=== PATIENT | female | born 1985 | race Two or more races ===

== ENCOUNTER 2016-04-14 22:43 | Inpatient (IN) | payer OTHER ==
[~2016-04-14] VITALS: Ht 142.2 cm; Wt 64.5 kg
[2016-04-14 23:16] VITALS: Ht 142.2 cm; Wt 64.5 kg
[2016-04-14 23:17] VITALS: BP 136/73; PULSE 101; RESP 18
[2016-04-14] MEDS ORDERED: PREN1TAB62 PO (23:20)
[2016-04-14] MEDS ORDERED: FERR325C PO (23:20)
[2016-04-14] MEDS ORDERED: GLYB2.5T2 PO (23:20)
--- NOTE | 2016-04-15 00:22 | HP ---
Date/Time of Note Date/Time of Note DATE: 04/15/16 TIME: 00:15 OB - History Hx of Present Free Text/Dictation 30 yo P1001 @ 32 wks, presents w PPROM good FM, no VB, irreg ctx Chief Complaint: PPROM : 2 Para: 1 Care: Good Care Other Concerns: GDMA2, 2.5mg glyburide po BID prior c/d in [place] Past Family/Social History * Past Medical, Surgical, Family and Obstetric Histories reviewed from chart. Blood Type: A+ Rubella: immune RPR/VDRL: Negative GBS Status: Unknown HBsAG: Negative OB Admission Exam Vital Signs Vital Signs Vital Signs Date Time Temp Pulse Resp B/P Pulse Ox O2 Delivery O2 Flow Rate FiO2 04/14/16 23:17 98.2 101 18 136/73 Room Air Physical Exam Abdomen: WNL Extremities: Normal Cervical Dilatation: None Effacement: 0% Station: Ballotable Membranes: Ruptured Amniotic Fluid: Clear Accelerations: Accelerations Present Decelerations: No Decelerations Varibility: Moderate Intensity: Mild OB Assessment/Plan Reason for admission: labor, rupture of membranes Other Assessment: 30 yo P1, w PPROM - previous elective c/d in [place] - GBS uknown - GDMA2, on glyburide Other plan: Admit to L&D Start magnesium sulfate and betamethasone to promote neuroprotection and FLM ampicillin for GBS prophylaxis sono to confirm presentation If patient starts to dilate and is not vertex, will proceed to repeat c/d. NPO until ultrasound RENETTA OVERTON MD Apr 15, 2016 00:22
[2016-04-15] MEDS ORDERED: DEXTROSE 5%-LR 1,000 ML IV PRN (00:30)
[2016-04-15] MEDS ORDERED: MAGNESIUM SULFATE 4 GM/100 ML 100 ML IV ONE (00:30)
[2016-04-15] MEDS ORDERED: AMPICILLIN 2 GM/NS (PMX) 100 ML IV ONE (00:30)
[2016-04-15] MEDS: LACTATED RINGER'S 1,000 ML IV SCH ×4 (01:24→19:52)
[2016-04-15 01:29] LABS: ADD SCAN DIFF NO
--- NOTE | 2016-04-15 01:30 | TRIAGE ---
OB Triage Datetime Report Generated by CPN: 04/15/2016 01:29 Datetime: 04/15/2016 00:30 Stage of : Antepartum Labor Evaluation Frequency: 4-7 Monitor Mode: External Duration (sec)2399: 70-90 Pattern: Normal: <= 5 Contractions in 10 Minutes Heart Rate FHR Baseline Rate: 150 Monitor Mode: External US FHR Baseline Changes: No Baseline Change Variability: Moderate 6-25 bpm Accelerations: 15X15 Decelerations: None Category: Category I Datetime: 04/15/2016 00:08 Membrane Status: Ruptured Datetime: 04/14/2016 23:39 Vaginal Exam Dilatation (cms): 0.0 Effacement (%): 0 Station: -4 Exam By: NITA Vaginal Bleeding: None Cervix, Consistency: Firm Cervix, Position: Posterior Presentation 'A': Unable to Assess Datetime: 04/14/2016 23:30 Labor Evaluation Frequency: 4-5 Duration (sec)2399: 60-80 Heart Rate FHR Baseline Rate: 150 Monitor Mode: External US FHR Baseline Changes: No Baseline Change Variability: Moderate 6-25 bpm Accelerations: 15X15 Decelerations: None Category: Category I Datetime: 04/14/2016 23:10 Comments: POSITION APPEARS TO BE BREECH WITH LEOPOLDS MANEUVER AND EXTERNAL U/S PLACEMENT Datetime: 04/14/2016 23:02 Nitrazine: Positive Datetime: 04/14/2016 22:57 Assessment Type: Triage Maternal Assessment Level of Consciousness: Fully Conscious Headache: Denies Blurred Vision: No Respiratory Effort: Unlabored; Regular Rhythm; Equal Expansion Nausea/Vomiting: Denies RUQ Epigastric Pain: Denies Lower Extremities Edema: Bilateral Lower Extremities Degree: 1+ Facial Edema: None Fall Risk Assessment History of Falling: (0) No Secondary Diagnosis: (0) No Ambulatory Aid: (0) Bedrest/Nurse Assist IV Therapy: (0) No Gait: (0) Normal/Bedrest/Immobile Mental Status: (0) Oriented to Own Ability Fall Score: 0 Fall Risk Score Definition: No Risk: No action required Datetime: 04/14/2016 22:53 Stage of : OB Triage Contraction Comments: EXTERNAL MONITORS Comments: EXTERNAL MONITORS APPLIED Datetime: 04/14/2016 22:51 Time of Arrival: 04/14/2016 22:38 EGA: 31.6 Arrived By: Wheelchair Arrived From: Home Chief Complaint: SROM SINCE 21:00 Movement: Present Contractions: Denies/Absent Rupture of Membranes: Unsure Vaginal Bleeding: None Vaginal Discharge: Denies Recent Sexual Intercouse: Denies Abdominal Trauma: Not Applicable Patient Complaints: Other Time Provider Notified: 04/15/2016 00:08 Provider Notified: TIAN Initial Plan: EFM, STERILE SPEC, ROM+/NITRAZINE
[2016-04-15 01:37] LABS: ABNORMAL IP MESSAGE 1; BASOPHILS % 0.1 % (0.0-2.0); EOSINOPHILS # 0.2 10^3/ul (0.0-0.5); EOSINOPHILS % 1.7 % (0.0-7.0); HEMATOCRIT 38.3 % (37.0-47.0); HEMOGLOBIN 11.5 g/dl (12.0-16.0); LYMPHOCYTES # 2.7 10^3/ul (0.8-2.9); LYMPHOCYTES % 28.2 % (15.0-51.0); MEAN CORPUSCULAR HEMOGLOBIN 20.4 pg (29.0-33.0); MEAN CORPUSCULAR VOLUME 67.8 fl (82.0-101.0); MONOCYTE # 0.7 10^3/ul (0.3-0.9); MONOCYTES % 7.5 % (0.0-11.0); NEUTROPHIL # 5.9 10^3/ul (1.6-7.5); PLATELET COUNT 222 10^3/UL (140-415); RED BLOOD COUNT 5.65 10^6/ul (4.20-5.40); RED CELL DISTRIBUTION WIDTH 18.4 % (11.5-14.5); WHITE BLOOD COUNT 9.6 10^3/ul (4.8-10.8)
[2016-04-15 01:43] LABS: INR 0.91; PROTIME 12.2 Sec (12.2-14.2)
[2016-04-15 01:47] LABS: GLUCOSE 147 mg/dl (70-220)
[2016-04-15] MEDS: MAGNESIUM SULFATE 20 GM/500 ML 500 ML IV SCH ×3 (01:54→21:43)
[2016-04-15] MEDS: BETAMET NA PHOS/AC(6 MG/ML) 5ML INJ IM SCH (01:56)
--- NOTE | 2016-04-15 02:01 | RADRPT ---
PROCEDURE: US OB. CLINICAL INDICATION: labor, ultrasound OB estimated weight. Clinical estimate gesta tional age is 33 weeks 1 day with estimated date of delivery 06/02/2016 TECHNIQUE: Multiple sonographic images of the pelvis were obtained. Transabdominal imaging only w as performed. The images were reviewed on a PACS workstation. COMPARISON: 03/08/2016 FINDINGS: There is a single live intrauterine gestation. Cardiac activity is present with 161 beats per minut e. There is a breech presentation. Measurements were made in order to determine age. The results are as follows: BPD = 8.23 cm, 33 weeks 1 day HC = 29.23 cm, 32 weeks 2 days AC = 30.68 cm, 34 weeks 4 days FL = 6.43 cm, 33 weeks 1 day. Estimated gestational age of approximately 33 weeks 2 days. The estimated date of delivery is 06/01/2016. The EFW = 2285 g, 5 pounds 1 ounce, 63%. The placenta is anterior and grade 1. There is no evidence for an abruption. IMPRESSION: 1. Single live intrauterine gestation of approximately 33 weeks 2 days based on current ultrasound measurements. 2. The estimated date of delivery is 06/01/2016. RPTAT: HJES .Heri Ernst MD, Date Time Electronically viewed and signed by .Heri Ernst MD, MD on 04/15/2016 02:00 .S/
[2016-04-15] MEDS: ACCU-CHEK XX SCH ×5 (05:30→21:00)
[2016-04-15] MEDS: AMPICILLIN 1 GM/NS (PMX) 50 ML IV SCH ×5 (06:58→20:33)
[2016-04-15] MEDS ORDERED: INSULIN REGULAR, HUMAN 100 UNIT/1 ML 3ML VIAL SC ONE (07:00)
[2016-04-15] MEDS ORDERED: OXYTOCIN 30 UNITS/LR 500 ML IV PRN (10:30)
[2016-04-15] MEDS ORDERED: MISOPROSTOL 200 MCG TAB PR PRN (10:30)
[2016-04-15] MEDS ORDERED: METHYLERGONOVINE 0.2 MG INJ IM PRN (10:30)
[2016-04-15] MEDS ORDERED: OXYTOCIN 30 UNITS/LR 500 ML IV SCH (10:30)
[2016-04-15] MEDS ORDERED: CEFAZOLIN 2 GM/50 ML (PMX) 50 ML IV ONE (10:30)
[2016-04-15] MEDS ORDERED: CARBOPROST 250 MCG INJ IM PRN (10:30)
--- NOTE | 2016-04-15 10:43 | CONS ---
DATE OF ADMISSION: 04/15/2016 DATE OF CONSULTATION: 04/15/2016 HISTORY OF PRESENT ILLNESS: consult requested by Dr. Marcial for prematurity at 32 and 1/7 weeks and history of gestational diabetes requiring Glyburide and history of premature rupture of membranes. Mom is 30-year-old [place] woman, 2, para 1, admitted early this morning with history of spontaneous rupture of membranes. EDC is 06/10/2016, estimated weight is 2285 grams. EDC On ultrasound it is 06/01/2016. Mom has history of section and presentation is breech now. she is afebrile and on antibiotics, on glyburide for gestational diabetes and given 1 dose of betamethasone and on magnesium sulfate. I have spoken to both parents and explained them about prematurity at 32 and 1/ 7 weeks, low weight, physiologic immaturity with gestational diabetes, risk of hypoglycemia, risk of respiratory distress syndrome, ventilatory assistance, bubble CPAP support and oxygen dependency, risk of sepsis, antibiotic therapy, need for spinal tap as clinically indicated, survival greater than 99%, jaundice, phototherapy, feeding problems with intolerance, necrotizing enterocolitis and gastroesophageal reflux, apnea of prematurity, and general treatment plan and general procedures done in NICU. I explained to the parents baby has significant risk for long-term hearing and neurodevelopmental problems including but not limited to delayed milestones, low intelligence, school problems, cerebral palsy, and answered the parents' questions and addressed the concerns. Parents seemed to understand the risks with prematurity and had appropriate questions. I thank you very much for allowing me to take part in the care of this patient. We will follow the mother and attend the delivery and follow the baby as needed. Dictated By: CLOVER JARQUIN/QUYEN Conf#: [id number] DID#: [id number] GEORGE
[2016-04-15] MEDS ORDERED: GLUCOSE GEL 15 GRAM TUBE PO PRN ×2 (12:00)
[2016-04-15] MEDS ORDERED: AZITHROMYCIN 500MG/NS (PMX) 250 ML IVPB ONE (12:00)
[2016-04-15] MEDS ORDERED: GLUCAGON 1 MG INJ IM PRN (12:00)
[2016-04-15] MEDS ORDERED: GLUCOSE GEL 15 GRAM TUBE BUCCAL PRN (12:00)
[2016-04-15] MEDS ORDERED: DEXTROSE 50% 50 ML SYRINGE IV PRN ×2 (12:00)
[2016-04-15] MEDS: INSULIN ASPART [NOVOLOG] 3 ML PEN SC SCH ×5 (13:00→21:36)
--- NOTE | 2016-04-15 13:08 | QN ---
Documentation Comment Laborist (Rounding for Dr. Marcial) HD#1 Doing well. Denies c/o. Reports normal FM. Not feeling UCs. Denies LOF or VB. VS 98.2 111/55 103 FHT: baseline 130s, mod marcia, +accels, no decels [place]: q9 min UCs Gen: well appearing, NAD CV: RRR, nl s1s2 Resp: CTAB Abd: soft, gravid, nontender, NABS Ext: SCDs in place, nontender, trace edema Neuro: 2+ patellar reflexes FSBG (0900) 187 A/P: 30yo w/hx of C/S x1 and GDMA2 now at 32+1 admitted for PPROM ->PPROM Day #2 w/o evidence of chorioamnionitis, abruption or PTL ->Cont Abx, Amp and Azithromycin ->FWB reassuring, CEFM ->Cont BMZ, s/p first dose at 0154, 2nd in 24hrs ->Magnesium Sulfate through the BMZ window ->Diabetic diet ->Restart Glyburide 2.5mg BID and fasting, PP FSBG with sliding scale Appreciate Perinatology and NICU consults REAGAN DRUMMOND MD Apr 15, 2016 13:08
[2016-04-15 14:50] LABS: ADD SCAN DIFF NO
[2016-04-15 15:10] LABS: INR 0.99; PROTIME 13.1 Sec (12.2-14.2)
[2016-04-15 15:11] LABS: PARTIAL THROMBOPLASTIN TIME 26.3 Sec (25.0-35.0)
[2016-04-15 15:23] LABS: ABNORMAL IP MESSAGE 1; BASOPHILS % 0.1 % (0.0-2.0); HEMATOCRIT 35.1 % (37.0-47.0); HEMOGLOBIN 10.7 g/dl (12.0-16.0); LYMPHOCYTES # 1.3 10^3/ul (0.8-2.9); LYMPHOCYTES % 14.6 % (15.0-51.0); MEAN CORPUSCULAR HEMOGLOBIN 20.6 pg (29.0-33.0); MEAN CORPUSCULAR HGB CONC 30.5 g/dl (32.0-37.0); MEAN CORPUSCULAR VOLUME 67.5 fl (82.0-101.0); MONOCYTE # 0.4 10^3/ul (0.3-0.9); NEUTROPHIL # 7.4 10^3/ul (1.6-7.5); NEUTROPHILS % 80.6 % (39.0-77.0); PLATELET COUNT 197 10^3/UL (140-415); RED CELL DISTRIBUTION WIDTH 18.2 % (11.5-14.5); WHITE BLOOD COUNT 9.2 10^3/ul (4.8-10.8)
[2016-04-16] MEDS: AMPICILLIN 1 GM/NS (PMX) 50 ML IV SCH ×6 (00:44→20:08)
[2016-04-16] MEDS: ACCU-CHEK XX SCH ×7 (01:00→20:08)
[2016-04-16] MEDS: BETAMET NA PHOS/AC(6 MG/ML) 5ML INJ IM SCH (02:01)
[2016-04-16] MEDS: MAGNESIUM SULFATE 20 GM/500 ML 500 ML IV SCH ×2 (07:34→17:22)
--- NOTE | 2016-04-16 08:23 | CONS ---
DATE OF ADMISSION: 04/15/2016 DATE OF CONSULTATION: 04/15/2016 HISTORY OF PRESENT ILLNESS: I spoke to the patient at about 10:30 in the morning on 04/15/2016. Th e patient is with intrauterine at 32 weeks and 1 day who presented to the hospital after s he recognized rupture of the membrane on 04/14/2016. Upon arrival to the hospital, rupture of the m embrane was confirmed. She was placed on magnesium sulfate and was given the betamethasone. She de nies any fever, chills, nausea, vomiting. OBSTETRIC HISTORY: Significant for gestational diabetes for which she takes Glyburide. No surgeries. Previous has been a normal vaginal delivery, full term. REVIEW OF SYSTEMS: All negative except for what is mentioned above. PHYSICAL EXAMINATION: VITAL SIGNS: Temperature is 98.2. Heart rate is slightly tachycardic at 110. Physical examination deferred. heart tone is reassuring for the gestational age and the patient has very occasional contracti ons. IMPRESSION: Intrauterine at 32 weeks and 1 day with premature rupture of membrane , day 1, on magnesium sulfate, status post betamethasone x1. She is currently on ampicillin and the re is no evidence of chorioamnionitis at this point. It is important to note that the fetus has bilateral pyelectasis and the largest is 9 mm. RECOMMENDATIONS: 1. Continue with the magnesium sulfate 24 hours after the second dose of betamethasone. 2. Please notify pediatricians of the pyelectasis. 3. Add azithromycin to ampicillin to complete the latency period antibiotics. 4. As the patient is diabetic, sliding scale antepartum management and await insulin administration for the fasting values. 5. Delivery is recommended if there is any evidence of chorioamnionitis or nonreassuring hear t tones or labor not managed by magnesium sulfate or at 34 weeks. Continuous heart tone monitoring. The patient can have a diabetic diet, 2200 calorie. I spoke to Dr. Kilpatrick. I spoke to the patient and to the nurse, and answered the questions to the best of my ability. Dictated By: ADRIA AVENDAÑO MD ST/NTS Conf#: [id number] DID#: [id number] CC: MICKIE KILPATRICK MD; ADRIA AVENDAÑO MD;*EndCC*
[2016-04-16] MEDS: AZITHROMYCIN 250 MG TAB PO SCH (09:28)
--- NOTE | 2016-04-16 09:31 | RADRPT ---
PROCEDURE: Limited OB ultrasound CLINICAL INDICATION: SROM, . Evaluate fluid volume. TECHNIQUE: Sonographic evaluation to assess the amniotic fluid volume was performed. Transabdomin al imaging of the gravid uterus was performed. COMPARISON: 04/15/2016. FINDINGS: There is a single live intrauterine gestation. heart rate is 132 beats per minute. The presentation is breech. The placenta is anterior, grade 2. The NATHALIA is 13.6 cm. IMPRESSION: 1. Amniotic fluid volume equals 13.6 cm. 2. The presentation is breech. RPTAT: HH .Mark Anthony Marcelo MD, Date Time Electronically viewed and signed by .Mark Anthony Marcelo MD, MD on 04/16/2016 09:30 .N/
[2016-04-16] MEDS: INSULIN ASPART [NOVOLOG] 3 ML PEN SC SCH ×5 (10:00→20:07)
[2016-04-16] MEDS: LACTATED RINGER'S 1,000 ML IV SCH ×2 (10:19→16:16)
--- NOTE | 2016-04-16 10:22 | PN ---
Date/Time of Note Date/Time of Note DATE: 04/16/16 TIME: 10:11 OB Subjective Subjective Subjective 32weeks , premature rupture member, afebrile, gestational diabetes, received betamethasone, second dose due to day ,currently on 2 antibiotics ampicillin and erythromycin also magnesium sulfate today,s Us NATHALIA 13.7. Patient had consultation with perinatologist and duplicate maker, will continue expectant management. MICKIE KILPATRICK MD Apr 16, 2016 10:21
[2016-04-16] MEDS ORDERED: AZITHROMYCIN 250 MG in SOD CHLORIDE 0.9% 250 ML IVPB SCH (11:30)
[2016-04-17] MEDS: AMPICILLIN 1 GM/NS (PMX) 50 ML IV SCH ×5 (00:29→16:50)
[2016-04-17] MEDS: LACTATED RINGER'S 1,000 ML IV SCH ×3 (00:30→21:14)
[2016-04-17] MEDS: MAGNESIUM SULFATE 20 GM/500 ML 500 ML IV SCH (03:20)
[2016-04-17] MEDS: ACCU-CHEK XX SCH ×4 (08:03→21:01)
[2016-04-17] MEDS: AZITHROMYCIN 250 MG TAB PO SCH (08:47)
[2016-04-17] MEDS: INSULIN ASPART [NOVOLOG] 3 ML PEN SC SCH ×4 (10:35→23:55)
[2016-04-17] MEDS: NIFEdipine 10 MG CAP PO SCH ×2 (18:13→23:34)
[2016-04-17] MEDS: AMOXICILLIN 500 MG CAP PO SCH (21:35)
[2016-04-18] MEDS: LACTATED RINGER'S 1,000 ML IV SCH ×2 (04:42→16:47)
[2016-04-18 05:53] LABS: ADD SCAN DIFF NO
[2016-04-18 05:58] LABS: ABNORMAL IP MESSAGE 1; BASOPHILS % 0.2 % (0.0-2.0); EOSINOPHILS # 0.1 10^3/ul (0.0-0.5); EOSINOPHILS % 0.6 % (0.0-7.0); HEMATOCRIT 36.5 % (37.0-47.0); HEMOGLOBIN 10.8 g/dl (12.0-16.0); LYMPHOCYTES # 2.6 10^3/ul (0.8-2.9); MEAN CORPUSCULAR HEMOGLOBIN 20.2 pg (29.0-33.0); MEAN CORPUSCULAR HGB CONC 29.6 g/dl (32.0-37.0); MEAN CORPUSCULAR VOLUME 68.4 fl (82.0-101.0); MONOCYTE # 0.7 10^3/ul (0.3-0.9); MONOCYTES % 7.7 % (0.0-11.0); NEUTROPHIL # 6.1 10^3/ul (1.6-7.5); NEUTROPHILS % 63.6 % (39.0-77.0); PLATELET COUNT 193 10^3/UL (140-415); RED BLOOD COUNT 5.34 10^6/ul (4.20-5.40); RED CELL DISTRIBUTION WIDTH 18.2 % (11.5-14.5); WHITE BLOOD COUNT 9.6 10^3/ul (4.8-10.8)
[2016-04-18] MEDS: AMOXICILLIN 500 MG CAP PO SCH ×3 (06:07→21:59)
[2016-04-18] MEDS: NIFEdipine 10 MG CAP PO SCH ×3 (06:09→17:36)
[2016-04-18] MEDS: ACCU-CHEK XX SCH ×4 (07:42→20:33)
[2016-04-18] MEDS: AZITHROMYCIN 250 MG TAB PO SCH (08:51)
[2016-04-18] MEDS: INSULIN ASPART [NOVOLOG] 3 ML PEN SC SCH ×3 (11:11→20:31)
[2016-04-18] MEDS ORDERED: [UNRECOGNIZED DRUG - REMARK] XX ONE (15:00)
[2016-04-18] MEDS ORDERED: [UNRECOGNIZED DRUG - REMARK] XX ONE (15:00)
[2016-04-18] MEDS ORDERED: [UNRECOGNIZED DRUG - REMARK] XX ONE (15:00)
--- NOTE | 2016-04-18 16:47 | PN ---
Date/Time of Note Date/Time of Note DATE: 04/18/16 TIME: 16:39 OB Subjective Subjective Subjective afebrile, few contraction in an hour mostly not felt, afebrile ,vital signs are stable heart rate category 1, no longer on the scaling scale she is on NovoLog 5 unit breakfast lunch and dinner and Levemir 15 units at bedtime, resting in bed not complaining of contractions ,Wbc 9000 no change since 3 days ago. We will continue current treatment to 34 weeks of gestation. MICKIE KILPATRICK MD Apr 18, 2016 16:47
[2016-04-18] MEDS ORDERED: INSULIN ASPART [NOVOLOG] 3 ML PEN SC SCH (18:05)
[2016-04-18] MEDS ORDERED: INSULIN DETEMIR [LEVEMIR] 3ML CART SC SCH (21:00)
[2016-04-19] MEDS: NIFEdipine 10 MG CAP PO SCH ×4 (00:04→17:53)
[2016-04-19] MEDS: LACTATED RINGER'S 1,000 ML IV SCH ×2 (04:44→18:15)
[2016-04-19] MEDS: AMOXICILLIN 500 MG CAP PO SCH ×3 (06:03→21:59)
[2016-04-19 06:27] LABS: ADD SCAN DIFF NO
[2016-04-19 06:33] LABS: ABNORMAL IP MESSAGE 1; BASOPHILS % 0.2 % (0.0-2.0); EOSINOPHILS # 0.1 10^3/ul (0.0-0.5); EOSINOPHILS % 1.2 % (0.0-7.0); HEMATOCRIT 40.3 % (37.0-47.0); HEMOGLOBIN 11.9 g/dl (12.0-16.0); LYMPHOCYTES # 2.7 10^3/ul (0.8-2.9); LYMPHOCYTES % 25.9 % (15.0-51.0); MEAN CORPUSCULAR HEMOGLOBIN 20.1 pg (29.0-33.0); MEAN CORPUSCULAR HGB CONC 29.5 g/dl (32.0-37.0); MEAN CORPUSCULAR VOLUME 68.2 fl (82.0-101.0); MONOCYTE # 0.7 10^3/ul (0.3-0.9); MONOCYTES % 6.8 % (0.0-11.0); NEUTROPHIL # 6.8 10^3/ul (1.6-7.5); NEUTROPHILS % 64.7 % (39.0-77.0); PLATELET COUNT 231 10^3/UL (140-415); RED BLOOD COUNT 5.91 10^6/ul (4.20-5.40); RED CELL DISTRIBUTION WIDTH 18.4 % (11.5-14.5); WHITE BLOOD COUNT 10.4 10^3/ul (4.8-10.8)
[2016-04-19] MEDS ORDERED: INSULIN ASPART [NOVOLOG] 3 ML PEN SC SCH ×4 (08:00→18:05)
[2016-04-19] MEDS: ACCU-CHEK XX SCH ×4 (08:03→20:14)
[2016-04-19] MEDS: INSULIN ASPART [NOVOLOG] 3 ML PEN SC SCH ×3 (08:46→17:47)
--- NOTE | 2016-04-19 08:49 | RADRPT ---
PROCEDURE: US OB biophysical profile. CLINICAL INDICATION: decreased movements, SROM TECHNIQUE: Multiple sonographic images of the pelvis were obtained. The images were reviewed on a PACS workstation. COMPARISON: 04/16/16 FINDINGS: There is a single viable intrauterine gestation. Cardiac activity is present with 156 beats per min makenzie. There is a breech presentation. The placenta is anterior. There is no evidence of placental abruption. There is a small placental robison. There is a normal amount of amniotic fluid with an NATHALIA = 11.4 cm. Biophysical profile: movement 2/2 tone 2/2. breathing 2/2 NATHALIA 2/2 Total 09/20 RPTAT: AA . IMPRESSION: Normal biophysical profile. . .Parag Conde MD, Date Time Electronically viewed and signed by .Parag oCnde MD, on 04/19/2016 08:49 .S/
[2016-04-19] MEDS: AZITHROMYCIN 250 MG TAB PO SCH (08:50)
--- NOTE | 2016-04-19 13:43 | PN ---
Date/Time of Note Date/Time of Note DATE: 04/19/16 TIME: 13:35 OB Subjective Subjective Subjective VSs stable, afebrile, several contraction per some mildly felt but some not felt , for her diabetes she still on same medication as of yesterday and her sugar at 8:03 AM 144, at 1050 134 ,and at 1219 120, today she is 32 weeks and 5days, wbc 10.4 Laboratory Tests Test 04/18/16 14:57 04/18/16 20:22 04/18/16 22:39 04/19/16 05:50 Bedside Glucose 129mg/dL 191mg/dL 167mg/dL Basophils # 0.010^3/ul Basophils % 0.2% Eosinophils # 0.110^3/ul Eosinophils % 1.2% Hematocrit 40.3% Hemoglobin 11.9g/dl Lymphocytes # 2.710^3/ul Lymphocytes % 25.9% Mean Corpuscular Hemoglobin 20.1pg Mean Corpuscular Hemoglobin Concent 29.5g/dl Mean Corpuscular Volume 68.2fl Mean Platelet Volume fl Monocytes # 0.710^3/ul Monocytes % 6.8% Neutrophils # 6.810^3/ul Neutrophils % 64.7% Nucleated Red Blood Cells # 0.010^3/ul Nucleated Red Blood Cells % 0.0/100WBC Platelet Count 99975^3/UL Red Blood Count 5.9110^6/ul Red Cell Distribution Width 18.4% White Blood Count 10.410^3/ul Test 04/19/16 08:03 04/19/16 10:50 04/19/16 12:19 Bedside Glucose 145mg/dL 134mg/dL 120mg/dL Current Medications Medications (Trade) Dose Ordered Sig/Antonio Route PRN Reason Start Time Stop Time Status Last Admin Dose Admin Lactated Ringer's 1,000 ml @ 75 mls/hr [id number] IV 04/15/16 00:16 04/19/16 04:44 Magnesium Sulfate 100 ml @ 200 mls/hr ONCE ONCE IV 04/15/16 00:30 04/15/16 00:59 DC 04/15/16 01:28 Magnesium Sulfate (Magnesium Sulfate 20 Gm/500 ml) 500 ml @ 50 mls/hr Q10H IV 04/15/16 01:00 04/17/16 12:02 DC 04/17/16 03:20 Betamethasone Acet/Betameth SodPhos 12 mg 12 mg Q24H IM 04/15/16 00:30 04/16/16 00:31 DC 04/16/16 02:01 Ampicillin 100 ml @ 100 mls/hr ONCE ONCE IV 04/15/16 00:30 04/15/16 01:29 DC 04/15/16 02:30 Ampicillin (Ampicillin 1 Gm/ NS (Pmx)) 50 ml @ 100 mls/hr Q4H IV 04/15/16 04:30 04/17/16 05:45 DC 04/17/16 05:08 Diagnostic Test (Pha) 1 ea 1 ea Q4 XX 04/15/16 05:00 04/16/16 20:00 DC 04/15/16 09:22 Dextrose/Lactated Ringer's (D5-Lr) 1,000 ml @ 125 mls/hr Q8H PRN IV DECREASED GLUCOSE 04/15/16 00:30 Insulin Human Regular 4 unit 4 unit ONCE ONCE SC 04/15/16 07:00 04/15/16 07:03 DC 04/15/16 07:43 Cefazolin Sodium/ Dextrose 50 ml @ 100 mls/hr ONCE ONCE IV 04/15/16 10:30 04/15/16 10:59 DC Oxytocin/Lactated Ringer's 500 ml @ 125 mls/hr ONCE IV 04/15/16 10:30 Oxytocin/Lactated Ringer's 500 ml @ 0 mls/hr ONCE PRN IV For Hemorrhage Management 04/15/16 10:30 Methylergonovine Maleate (Methergine) 0.2 mg ONCE PRN IM VAGINAL BLEEDING 04/15/16 10:30 Carboprost Tromethamine (Hemabate) 250 mcg ONCE PRN IM VAGINAL BLEEDING 04/15/16 10:30 Misoprostol 1000 mcg 1,000 mcg ONCE PRN MO VAGINAL BLEEDING 04/15/16 10:30 Azithromycin 250 ml @ 250 mls/hr ONCE ONCE IVPB 04/15/16 12:00 04/15/16 12:59 DC 04/15/16 13:18 Azithromycin/ Sodium Chloride (Zithromax/NS) 250 ml @ 250 mls/hr Q24H IVPB 04/16/16 11:30 04/16/16 11:30 DC Insulin Aspart (Novolog Insulin Pen) 2 HOURS AFTER MEALS SC 04/15/16 13:30 04/18/16 15:16 DC 04/18/16 11:11 Insulin Aspart (Novolog Insulin Pen) Check Blood gluc... Q4 SC 04/15/16 13:00 04/16/16 10:17 DC Miscellaneous Information (* Miscellaneous Pharmacy Order) 1 ea ONCE ONCE XX 04/15/16 11:30 04/15/16 11:37 DC Azithromycin (Zithromax) 250 mg DAILY PO 04/16/16 09:00 04/19/16 08:50 Miscellaneous Information 1 ea NOTE XX 04/15/16 12:00 Glucose (Glutose) 15 gm Q15M PRN PO DECREASED GLUCOSE 04/15/16 12:00 Glucose (Glutose) 22.5 gm Q15M PRN PO DECREASED GLUCOSE 04/15/16 12:00 Dextrose (D50w Syringe) 25 ml Q15M PRN IV DECREASED GLUCOSE 04/15/16 12:00 Dextrose (D50w Syringe) 50 ml Q15M PRN IV DECREASED GLUCOSE 04/15/16 12:00 Glucagon (Glucagen) 1 mg Q15M PRN IM DECREASED GLUCOSE 04/15/16 12:00 Glucose (Glutose) 15 gm Q15M PRN BUCCAL DECREASED GLUCOSE 04/15/16 12:00 Diagnostic Test (Pha) 1 ea 1 ea FBSPP XX 04/16/16 20:05 04/18/16 15:33 DC 04/18/16 14:55 Ampicillin (Ampicillin 1 Gm/ NS (Pmx)) 50 ml @ 100 mls/hr Q4 IV 04/17/16 09:00 04/17/16 18:22 DC 04/17/16 16:50 Nifedipine (Procardia) 20 mg Q6 PO 04/17/16 18:00 04/19/16 12:22 Amoxicillin (Amoxicillin) 500 mg Q8 PO 04/17/16 22:00 04/19/16 06:03 Insulin Aspart (Novolog Insulin Pen) AC MEALS SC 04/18/16 17:35 04/19/16 09:48 DC 04/19/16 08:46 Diagnostic Test (Pha) (Accucheck) 1 ea FBSPP XX 04/18/16 20:05 04/19/16 10:51 Insulin Detemir (Levemir) 15 unit HS SC 04/18/16 21:00 04/19/16 09:48 DC 04/18/16 20:58 Insulin Aspart (Novolog Insulin Pen) 5 unit WITH BREAKFAST SC 04/19/16 08:00 04/19/16 09:48 DC 04/19/16 08:48 Insulin Aspart (Novolog Insulin Pen) 5 unit WITH LUNCH SC 04/19/16 12:00 04/19/16 12:00 DC Insulin Aspart (Novolog Insulin Pen) 5 unit WITH DINNER SC 04/18/16 18:05 04/19/16 09:48 DC 04/18/16 20:33 Miscellaneous Information (* Miscellaneous Pharmacy Order) 1 ea OB HYPOGLYCEMIA ONCE XX 04/18/16 15:00 04/18/16 15:27 DC Miscellaneous Information (* Miscellaneous Pharmacy Order) 1 ea ONCE ONCE XX 04/18/16 15:00 04/18/16 15:29 DC Miscellaneous Information (* Miscellaneous Pharmacy Order) Discontinue ALL previ... ONCE ONCE XX 04/18/16 15:00 04/18/16 15:30 DC Insulin Aspart (Novolog Insulin Pen) AC MEALS OR 04/19/16 11:30 Insulin Aspart (Novolog Insulin Pen) 7 unit WITH DINNER SC 04/19/16 18:05 Insulin Aspart (Novolog Insulin Pen) 7 unit WITH BREAKFAST OR 04/20/16 08:00 Insulin Aspart (Novolog Insulin Pen) 7 unit WITH LUNCH OR 04/19/16 12:00 04/19/16 12:52 Insulin Detemir (Levemir) 18 unit HS OR 04/19/16 21:00 MICKIE KILPATRICK MD Apr 19, 2016 13:43
[2016-04-19] MEDS ORDERED: INSULIN DETEMIR [LEVEMIR] 3ML CART SC SCH (21:00)
[2016-04-20] MEDS: AMOXICILLIN 500 MG CAP PO SCH ×3 (06:09→21:02)
[2016-04-20] MEDS: NIFEdipine 10 MG CAP PO SCH ×4 (06:11→17:47)
[2016-04-20 07:26] LABS: ADD SCAN DIFF NO
[2016-04-20] MEDS: ACCU-CHEK XX SCH ×4 (07:30→20:55)
[2016-04-20 07:56] LABS: ABNORMAL IP MESSAGE 1; BASOPHILS % 0.2 % (0.0-2.0); EOSINOPHILS # 0.2 10^3/ul (0.0-0.5); EOSINOPHILS % 1.3 % (0.0-7.0); HEMATOCRIT 41.1 % (37.0-47.0); HEMOGLOBIN 12.4 g/dl (12.0-16.0); LYMPHOCYTES # 2.9 10^3/ul (0.8-2.9); LYMPHOCYTES % 23.1 % (15.0-51.0); MEAN CORPUSCULAR HEMOGLOBIN 20.5 pg (29.0-33.0); MEAN CORPUSCULAR HGB CONC 30.2 g/dl (32.0-37.0); MEAN CORPUSCULAR VOLUME 67.9 fl (82.0-101.0); MONOCYTE # 0.8 10^3/ul (0.3-0.9); MONOCYTES % 6.2 % (0.0-11.0); NEUTROPHIL # 8.7 10^3/ul (1.6-7.5); NEUTROPHILS % 68.5 % (39.0-77.0); PLATELET COUNT 221 10^3/UL (140-415); RED BLOOD COUNT 6.05 10^6/ul (4.20-5.40); RED CELL DISTRIBUTION WIDTH 17.7 % (11.5-14.5); WHITE BLOOD COUNT 12.7 10^3/ul (4.8-10.8)
[2016-04-20] MEDS ORDERED: INSULIN ASPART [NOVOLOG] 3 ML PEN SC SCH ×2 (08:00→18:05)
[2016-04-20] MEDS: INSULIN ASPART [NOVOLOG] 3 ML PEN SC SCH ×4 (08:38→17:45)
[2016-04-20] MEDS: AZITHROMYCIN 250 MG TAB PO SCH (09:34)
[2016-04-20] MEDS: LACTATED RINGER'S 1,000 ML IV SCH ×2 (10:41→17:55)
[2016-04-20] MEDS ORDERED: INSULIN DETEMIR [LEVEMIR] 3ML CART SC SCH (21:00)
[2016-04-21] MEDS: NIFEdipine 10 MG CAP PO SCH ×4 (00:13→18:03)
[2016-04-21] MEDS: LACTATED RINGER'S 1,000 ML IV SCH ×3 (02:06→17:46)
[2016-04-21] MEDS: AMOXICILLIN 500 MG CAP PO SCH ×3 (06:08→22:05)
[2016-04-21 06:40] LABS: ADD SCAN DIFF NO
[2016-04-21 06:50] LABS: ABNORMAL IP MESSAGE 1; BASOPHILS % 0.1 % (0.0-2.0); EOSINOPHILS # 0.2 10^3/ul (0.0-0.5); EOSINOPHILS % 1.9 % (0.0-7.0); HEMATOCRIT 39.6 % (37.0-47.0); HEMOGLOBIN 11.7 g/dl (12.0-16.0); LYMPHOCYTES # 2.8 10^3/ul (0.8-2.9); LYMPHOCYTES % 24.9 % (15.0-51.0); MEAN CORPUSCULAR HEMOGLOBIN 20.2 pg (29.0-33.0); MEAN CORPUSCULAR HGB CONC 29.5 g/dl (32.0-37.0); MEAN CORPUSCULAR VOLUME 68.5 fl (82.0-101.0); MONOCYTE # 0.7 10^3/ul (0.3-0.9); MONOCYTES % 5.9 % (0.0-11.0); NEUTROPHIL # 7.4 10^3/ul (1.6-7.5); NEUTROPHILS % 66.7 % (39.0-77.0); PLATELET COUNT 216 10^3/UL (140-415); RED BLOOD COUNT 5.78 10^6/ul (4.20-5.40)
[2016-04-21] MEDS: INSULIN ASPART [NOVOLOG] 3 ML PEN SC SCH ×4 (07:30→17:35)
[2016-04-21] MEDS ORDERED: INSULIN ASPART [NOVOLOG] 3 ML PEN SC SCH ×2 (08:00→18:05)
[2016-04-21] MEDS: ACCU-CHEK XX SCH ×4 (08:30→20:25)
[2016-04-21] MEDS: AZITHROMYCIN 250 MG TAB PO SCH (09:20)
--- NOTE | 2016-04-21 11:33 | PN ---
Date/Time of Note Date/Time of Note DATE: 04/21/16 TIME: 11:30 OB Subjective Subjective Subjective Afebrile vital signs stable, resting in bed no complain of contraction, WBC 11, 000 down from 12,000 day before today she is 32 weeks 6 days with continue observation and expectant management. MICKIE KILPATRICK MD Apr 21, 2016 11:33
[2016-04-21] MEDS ORDERED: INSULIN DETEMIR [LEVEMIR] 3ML CART SC SCH (21:00)
[2016-04-22] MEDS: NIFEdipine 10 MG CAP PO SCH ×5 (00:03→23:57)
[2016-04-22] MEDS: LACTATED RINGER'S 1,000 ML IV SCH ×4 (01:13→23:58)
[2016-04-22] MEDS: AMOXICILLIN 500 MG CAP PO SCH ×3 (06:26→21:56)
[2016-04-22 07:23] LABS: ADD SCAN DIFF NO
[2016-04-22 07:30] LABS: ABNORMAL IP MESSAGE 1; BASOPHILS % 0.1 % (0.0-2.0); EOSINOPHILS # 0.3 10^3/ul (0.0-0.5); EOSINOPHILS % 2.9 % (0.0-7.0); HEMOGLOBIN 11.3 g/dl (12.0-16.0); LYMPHOCYTES # 2.4 10^3/ul (0.8-2.9); MEAN CORPUSCULAR HEMOGLOBIN 19.9 pg (29.0-33.0); MEAN CORPUSCULAR VOLUME 68.8 fl (82.0-101.0); MONOCYTE # 0.6 10^3/ul (0.3-0.9); MONOCYTES % 7.1 % (0.0-11.0); NEUTROPHIL # 5.7 10^3/ul (1.6-7.5); NEUTROPHILS % 63.2 % (39.0-77.0); PLATELET COUNT 202 10^3/UL (140-415); RED BLOOD COUNT 5.67 10^6/ul (4.20-5.40); RED CELL DISTRIBUTION WIDTH 17.3 % (11.5-14.5); WHITE BLOOD COUNT 9.1 10^3/ul (4.8-10.8)
[2016-04-22] MEDS: INSULIN ASPART [NOVOLOG] 3 ML PEN SC SCH ×4 (07:30→18:23)
[2016-04-22] MEDS: ACCU-CHEK XX SCH ×4 (07:30→20:38)
[2016-04-22] MEDS ORDERED: INSULIN ASPART [NOVOLOG] 3 ML PEN SC SCH ×2 (08:00→12:00)
[2016-04-22] MEDS: AZITHROMYCIN 250 MG TAB PO SCH (08:34)
--- NOTE | 2016-04-22 10:18 | PN ---
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 Laboratory Tests Test 04/21/16 11:30 04/21/16 12:36 04/21/16 14:52 04/21/16 17:36 Bedside Glucose 159mg/dL 96mg/dL 109mg/dL 133mg/dL Test 04/21/16 20:16 04/22/16 06:30 04/22/16 08:03 Bedside Glucose 147mg/dL 114mg/dL Basophils # 0.010^3/ul Basophils % 0.1% Eosinophils # 0.310^3/ul Eosinophils % 2.9% Hematocrit 39.0% Hemoglobin 11.3g/dl Lymphocytes # 2.410^3/ul Lymphocytes % 26.0% Mean Corpuscular Hemoglobin 19.9pg Mean Corpuscular Hemoglobin Concent 29.0g/dl Mean Corpuscular Volume 68.8fl Mean Platelet Volume fl Monocytes # 0.610^3/ul Monocytes % 7.1% Neutrophils # 5.710^3/ul Neutrophils % 63.2% Nucleated Red Blood Cells # 0.010^3/ul Nucleated Red Blood Cells % 0.0/100WBC Platelet Count 77029^3/UL Red Blood Count 5.6710^6/ul Red Cell Distribution Width 17.3% White Blood Count 9.110^3/ul Current Medications Medications (Trade) Dose Ordered Sig/Antonio Route PRN Reason Start Time Stop Time Status Last Admin Dose Admin Lactated Ringer's 1,000 ml @ 125 mls/hr Q8H IV 04/15/16 00:16 04/22/16 08:34 Magnesium Sulfate 100 ml @ 200 mls/hr ONCE ONCE IV 04/15/16 00:30 04/15/16 00:59 DC 04/15/16 01:28 Magnesium Sulfate (Magnesium Sulfate 20 Gm/500 ml) 500 ml @ 50 mls/hr Q10H IV 04/15/16 01:00 04/17/16 12:02 DC 04/17/16 03:20 Betamethasone Acet/Betameth SodPhos 12 mg 12 mg Q24H IM 04/15/16 00:30 04/16/16 00:31 DC 04/16/16 02:01 Ampicillin 100 ml @ 100 mls/hr ONCE ONCE IV 04/15/16 00:30 04/15/16 01:29 DC 04/15/16 02:30 Ampicillin (Ampicillin 1 Gm/ NS (Pmx)) 50 ml @ 100 mls/hr Q4H IV 04/15/16 04:30 04/17/16 05:45 DC 04/17/16 05:08 Diagnostic Test (Pha) 1 ea 1 ea Q4 XX 04/15/16 05:00 04/16/16 20:00 DC 04/15/16 09:22 Dextrose/Lactated Ringer's (D5-Lr) 1,000 ml @ 125 mls/hr Q8H PRN IV DECREASED GLUCOSE 04/15/16 00:30 Insulin Human Regular 4 unit 4 unit ONCE ONCE SC 04/15/16 07:00 04/15/16 07:03 DC 04/15/16 07:43 Cefazolin Sodium/ Dextrose 50 ml @ 100 mls/hr ONCE ONCE IV 04/15/16 10:30 04/15/16 10:59 DC Oxytocin/Lactated Ringer's 500 ml @ 125 mls/hr ONCE IV 04/15/16 10:30 Oxytocin/Lactated Ringer's 500 ml @ 0 mls/hr ONCE PRN IV For Hemorrhage Management 04/15/16 10:30 Methylergonovine Maleate (Methergine) 0.2 mg ONCE PRN IM VAGINAL BLEEDING 04/15/16 10:30 Carboprost Tromethamine (Hemabate) 250 mcg ONCE PRN IM VAGINAL BLEEDING 04/15/16 10:30 Misoprostol 1000 mcg 1,000 mcg ONCE PRN DE VAGINAL BLEEDING 04/15/16 10:30 Azithromycin 250 ml @ 250 mls/hr ONCE ONCE IVPB 04/15/16 12:00 04/15/16 12:59 DC 04/15/16 13:18 Azithromycin/ Sodium Chloride (Zithromax/NS) 250 ml @ 250 mls/hr Q24H IVPB 04/16/16 11:30 04/16/16 11:30 DC Insulin Aspart (Novolog Insulin Pen) 2 HOURS AFTER MEALS SC 04/15/16 13:30 04/18/16 15:16 DC 04/18/16 11:11 Insulin Aspart (Novolog Insulin Pen) Check Blood gluc... Q4 SC 04/15/16 13:00 04/16/16 10:17 DC Miscellaneous Information (* Miscellaneous Pharmacy Order) 1 ea ONCE ONCE XX 04/15/16 11:30 04/15/16 11:37 DC Azithromycin (Zithromax) 250 mg DAILY PO 04/16/16 09:00 04/22/16 08:34 Miscellaneous Information 1 ea NOTE XX 04/15/16 12:00 Glucose (Glutose) 15 gm Q15M PRN PO DECREASED GLUCOSE 04/15/16 12:00 Glucose (Glutose) 22.5 gm Q15M PRN PO DECREASED GLUCOSE 04/15/16 12:00 Dextrose (D50w Syringe) 25 ml Q15M PRN IV DECREASED GLUCOSE 04/15/16 12:00 Dextrose (D50w Syringe) 50 ml Q15M PRN IV DECREASED GLUCOSE 04/15/16 12:00 Glucagon (Glucagen) 1 mg Q15M PRN IM DECREASED GLUCOSE 04/15/16 12:00 Glucose (Glutose) 15 gm Q15M PRN BUCCAL DECREASED GLUCOSE 04/15/16 12:00 Diagnostic Test (Pha) 1 ea 1 ea FBSPP XX 04/16/16 20:05 04/18/16 15:33 DC 04/18/16 14:55 Ampicillin (Ampicillin 1 Gm/ NS (Pmx)) 50 ml @ 100 mls/hr Q4 IV 04/17/16 09:00 04/17/16 18:22 DC 04/17/16 16:50 Nifedipine (Procardia) 20 mg Q6 PO 04/17/16 18:00 04/22/16 06:26 Amoxicillin (Amoxicillin) 500 mg Q8 PO 04/17/16 22:00 04/22/16 06:26 Insulin Aspart (Novolog Insulin Pen) AC MEALS SC 04/18/16 17:35 04/19/16 09:48 DC 04/19/16 08:46 Diagnostic Test (Pha) (Accucheck) 1 ea FBSPP XX 04/18/16 20:05 04/21/16 20:25 Insulin Detemir (Levemir) 15 unit HS SC 04/18/16 21:00 04/19/16 09:48 DC 04/18/16 20:58 Insulin Aspart (Novolog Insulin Pen) 5 unit WITH BREAKFAST SC 04/19/16 08:00 04/19/16 09:48 DC 04/19/16 08:48 Insulin Aspart (Novolog Insulin Pen) 5 unit WITH LUNCH SC 04/19/16 12:00 04/19/16 12:00 DC Insulin Aspart (Novolog Insulin Pen) 5 unit WITH DINNER SC 04/18/16 18:05 04/19/16 09:48 DC 04/18/16 20:33 Miscellaneous Information (* Miscellaneous Pharmacy Order) 1 ea OB HYPOGLYCEMIA ONCE XX 04/18/16 15:00 04/18/16 15:27 DC Miscellaneous Information (* Miscellaneous Pharmacy Order) 1 ea ONCE ONCE XX 04/18/16 15:00 04/18/16 15:29 DC Miscellaneous Information (* Miscellaneous Pharmacy Order) Discontinue ALL previ... ONCE ONCE XX 04/18/16 15:00 04/18/16 15:30 DC Insulin Aspart (Novolog Insulin Pen) AC MEALS SC 04/19/16 11:30 04/20/16 17:45 Insulin Aspart (Novolog Insulin Pen) 7 unit WITH DINNER SC 04/19/16 18:05 04/20/16 09:56 DC 04/19/16 17:52 Insulin Aspart (Novolog Insulin Pen) 7 unit WITH BREAKFAST SC 04/20/16 08:00 04/20/16 09:56 DC 04/20/16 08:39 Insulin Aspart (Novolog Insulin Pen) 7 unit WITH LUNCH SC 04/19/16 12:00 04/20/16 09:56 DC 04/19/16 12:52 Insulin Detemir (Levemir) 18 unit HS SC 04/19/16 21:00 04/20/16 09:56 DC 04/19/16 21:02 Insulin Aspart (Novolog Insulin Pen) 10 unit WITH LUNCH SC 04/20/16 12:00 04/21/16 13:46 DC 04/21/16 12:49 Insulin Aspart (Novolog Insulin Pen) 10 unit WITH DINNER SC 04/20/16 18:05 04/21/16 13:46 DC Insulin Aspart (Novolog Insulin Pen) 10 unit WITH BREAKFAST SC 04/21/16 08:00 04/21/16 13:46 DC 04/21/16 09:08 Insulin Detemir (Levemir) 24 unit HS AL 04/20/16 21:00 04/21/16 13:46 DC 04/20/16 20:52 Insulin Aspart (Novolog Insulin Pen) 12 unit WITH LUNCH AL 04/22/16 12:00 Insulin Aspart (Novolog Insulin Pen) 12 unit WITH DINNER AL 04/21/16 18:05 04/21/16 17:53 Insulin Aspart (Novolog Insulin Pen) 12 unit WITH BREAKFAST AL 04/22/16 08:00 04/22/16 08:53 Insulin Detemir (Levemir) 26 unit HS AL 04/21/16 21:00 04/21/16 21:01 MICKIE KILPATRICK MD Apr 22, 2016 10:18
--- NOTE | 2016-04-22 14:17 | RADRPT ---
PROCEDURE: US evaluation of amniotic fluid volume. CLINICAL INDICATION: History of low amniotic fluid volume. TECHNIQUE: Multiple sonographic images of the gravid uterus were obtained utilizing kimball-scale conrad ging. Sagittal and transverse images were obtained. The images were reviewed on a PACS workstation . NATHALIA was measured. COMPARISON: 04/16/2016. FINDINGS: There is a single live intrauterine . heart rate is 159 beats per minute. Position is breech. Placenta is anterior grade II with no abruption or previa. NATHALIA is 7.2 cm. (Normal = 5-20 cm.) IMPRESSION: 1. NATHALIA is 7.2 cm. RPTAT: QQ .Kamaljit De La Vega MD, MD Date Time Electronically viewed and signed by .Kamaljit De La Vega MD, on 04/22/2016 14:17 .R/
[2016-04-22] MEDS: INSULIN DETEMIR [LEVEMIR] 3ML CART SC SCH (21:06)
[2016-04-23] MEDS: AMOXICILLIN 500 MG CAP PO SCH ×3 (06:29→22:00)
[2016-04-23] MEDS: NIFEdipine 10 MG CAP PO SCH ×4 (06:30→23:49)
[2016-04-23] MEDS: INSULIN ASPART [NOVOLOG] 3 ML PEN SC SCH ×6 (07:30→18:04)
[2016-04-23 07:38] LABS: ADD SCAN DIFF NO
[2016-04-23 07:44] LABS: ABNORMAL IP MESSAGE 1; BASOPHILS % 0.1 % (0.0-2.0); EOSINOPHILS # 0.2 10^3/ul (0.0-0.5); EOSINOPHILS % 2.4 % (0.0-7.0); HEMATOCRIT 38.5 % (37.0-47.0); HEMOGLOBIN 11.4 g/dl (12.0-16.0); LYMPHOCYTES # 2.5 10^3/ul (0.8-2.9); LYMPHOCYTES % 29.2 % (15.0-51.0); MEAN CORPUSCULAR HEMOGLOBIN 20.3 pg (29.0-33.0); MEAN CORPUSCULAR HGB CONC 29.6 g/dl (32.0-37.0); MEAN CORPUSCULAR VOLUME 68.5 fl (82.0-101.0); MONOCYTE # 0.6 10^3/ul (0.3-0.9); MONOCYTES % 6.9 % (0.0-11.0); NEUTROPHIL # 5.1 10^3/ul (1.6-7.5); PLATELET COUNT 196 10^3/UL (140-415); RED BLOOD COUNT 5.62 10^6/ul (4.20-5.40); RED CELL DISTRIBUTION WIDTH 16.6 % (11.5-14.5); WHITE BLOOD COUNT 8.4 10^3/ul (4.8-10.8)
[2016-04-23] MEDS: LACTATED RINGER'S 1,000 ML IV SCH ×2 (08:00→16:07)
[2016-04-23] MEDS: ACCU-CHEK XX SCH ×4 (08:50→20:05)
[2016-04-23] MEDS: AZITHROMYCIN 250 MG TAB PO SCH (09:11)
--- NOTE | 2016-04-23 09:55 | PN ---
Date/Time of Note Date/Time of Note DATE: 04/23/16 TIME: 09:50 OB Subjective Subjective Subjective VSs stable, today 33 weeks and 1 day,. abdomen soft occasional contractions, showing on the monitor but not felt by the patient NATHALIA 7.4, WBC 8.4 down from 9.1. MICKIE KILPATRICK MD Apr 23, 2016 09:54
[2016-04-23] MEDS ORDERED: BISACODYL (EC) 5 MG TAB PO PRN (10:00)
[2016-04-23] MEDS: INSULIN DETEMIR [LEVEMIR] 3ML CART SC SCH (21:07)
[2016-04-24] MEDS: AMOXICILLIN 500 MG CAP PO SCH ×3 (06:05→21:56)
[2016-04-24] MEDS: NIFEdipine 10 MG CAP PO SCH ×4 (06:06→23:58)
[2016-04-24 06:19] LABS: ADD SCAN DIFF NO
[2016-04-24 06:28] LABS: ABNORMAL IP MESSAGE 1; BASOPHILS % 0.2 % (0.0-2.0); EOSINOPHILS # 0.2 10^3/ul (0.0-0.5); EOSINOPHILS % 1.9 % (0.0-7.0); HEMATOCRIT 37.1 % (37.0-47.0); HEMOGLOBIN 11.1 g/dl (12.0-16.0); LYMPHOCYTES # 2.3 10^3/ul (0.8-2.9); LYMPHOCYTES % 28.3 % (15.0-51.0); MEAN CORPUSCULAR HEMOGLOBIN 20.4 pg (29.0-33.0); MEAN CORPUSCULAR HGB CONC 29.9 g/dl (32.0-37.0); MEAN CORPUSCULAR VOLUME 68.1 fl (82.0-101.0); MONOCYTE # 0.6 10^3/ul (0.3-0.9); MONOCYTES % 7.5 % (0.0-11.0); NEUTROPHIL # 5.1 10^3/ul (1.6-7.5); NEUTROPHILS % 61.6 % (39.0-77.0); PLATELET COUNT 200 10^3/UL (140-415); RED BLOOD COUNT 5.45 10^6/ul (4.20-5.40); RED CELL DISTRIBUTION WIDTH 16.5 % (11.5-14.5); WHITE BLOOD COUNT 8.3 10^3/ul (4.8-10.8)
[2016-04-24] MEDS: INSULIN ASPART [NOVOLOG] 3 ML PEN SC SCH ×6 (07:30→18:58)
[2016-04-24] MEDS: ACCU-CHEK XX SCH ×4 (07:30→20:33)
[2016-04-24] MEDS: LACTATED RINGER'S 1,000 ML IV SCH ×4 (09:02→23:59)
[2016-04-24] MEDS: AZITHROMYCIN 250 MG TAB PO SCH (09:02)
--- NOTE | 2016-04-24 09:15 | PN ---
Date/Time of Note Date/Time of Note DATE: 04/24/16 TIME: 09:12 OB Subjective Subjective Subjective VSs stable, afebrile, resting in bed, abdomen soft, uterus soft and nontender denies feeling any contractions, will continue expecting management, wbc 8.3 MICKIE KILPATRICK MD Apr 24, 2016 09:15
[2016-04-24] MEDS: INSULIN DETEMIR [LEVEMIR] 3ML CART SC SCH (21:10)
[2016-04-25] MEDS: AMOXICILLIN 500 MG CAP PO SCH ×3 (06:02→21:25)
[2016-04-25] MEDS: NIFEdipine 10 MG CAP PO SCH ×4 (06:04→23:43)
[2016-04-25 06:56] LABS: ADD SCAN DIFF NO
[2016-04-25 07:00] LABS: ABNORMAL IP MESSAGE 1; BASOPHILS % 0.2 % (0.0-2.0); EOSINOPHILS # 0.2 10^3/ul (0.0-0.5); EOSINOPHILS % 2.1 % (0.0-7.0); HEMATOCRIT 38.7 % (37.0-47.0); HEMOGLOBIN 11.3 g/dl (12.0-16.0); LYMPHOCYTES # 2.5 10^3/ul (0.8-2.9); LYMPHOCYTES % 27.6 % (15.0-51.0); MEAN CORPUSCULAR HEMOGLOBIN 19.9 pg (29.0-33.0); MEAN CORPUSCULAR HGB CONC 29.2 g/dl (32.0-37.0); MEAN CORPUSCULAR VOLUME 68.1 fl (82.0-101.0); MONOCYTE # 0.7 10^3/ul (0.3-0.9); MONOCYTES % 7.8 % (0.0-11.0); NEUTROPHIL # 5.5 10^3/ul (1.6-7.5); NEUTROPHILS % 61.5 % (39.0-77.0); PLATELET COUNT 228 10^3/UL (140-415); RED BLOOD COUNT 5.68 10^6/ul (4.20-5.40); RED CELL DISTRIBUTION WIDTH 16.3 % (11.5-14.5)
[2016-04-25] MEDS: INSULIN ASPART [NOVOLOG] 3 ML PEN SC SCH ×6 (07:30→18:00)
[2016-04-25] MEDS: LACTATED RINGER'S 1,000 ML IV SCH ×3 (07:46→23:41)
[2016-04-25] MEDS: ACCU-CHEK XX SCH ×4 (08:36→20:34)
[2016-04-25] MEDS: AZITHROMYCIN 250 MG TAB PO SCH (08:42)
--- NOTE | 2016-04-25 13:40 | RADRPT ---
PROCEDURE: OB ultrasound (limited) CLINICAL INDICATION: Leaking fluid TECHNIQUE: Limited sonographic evaluation of the gravid uterus was performed. Transabdominal imag ing was performed. COMPARISON: 04/22/2016 FINDINGS: Single intrauterine gestation is identified, in breech presentation. Placenta is anterior without e vidence for abruption or previa. heart rate is 179 bpm. NATHALIA measures 5.7 cm, at the lower li malia of normal. Maximum vertical pocket of fluid measures 4.1 cm. IMPRESSION: 1. Single live intrauterine gestation. 2. Breech presentation. 3. There is borderline oligohydramnios - NATHALIA measures 5.7 cm. On the previous ultrasound, NATHALIA measu red 7.2 cm. RPTAT: EE .Uziel Souza MD, Date Time Electronically viewed and signed by .Uziel Souza MD, on 04/25/2016 13:40 .R/
[2016-04-25] MEDS: INSULIN DETEMIR [LEVEMIR] 3ML CART SC SCH (21:25)
[2016-04-26] MEDS: AMOXICILLIN 500 MG CAP PO SCH (05:56)
[2016-04-26] MEDS: NIFEdipine 10 MG CAP PO SCH ×4 (05:57→23:43)
[2016-04-26 06:49] LABS: ADD SCAN DIFF NO
[2016-04-26 06:52] LABS: ABNORMAL IP MESSAGE 1; BASOPHILS % 0.3 % (0.0-2.0); EOSINOPHILS # 0.2 10^3/ul (0.0-0.5); EOSINOPHILS % 1.8 % (0.0-7.0); HEMATOCRIT 38.2 % (37.0-47.0); HEMOGLOBIN 11.5 g/dl (12.0-16.0); LYMPHOCYTES # 2.4 10^3/ul (0.8-2.9); LYMPHOCYTES % 27.3 % (15.0-51.0); MEAN CORPUSCULAR HEMOGLOBIN 20.4 pg (29.0-33.0); MEAN CORPUSCULAR HGB CONC 30.1 g/dl (32.0-37.0); MEAN CORPUSCULAR VOLUME 67.9 fl (82.0-101.0); MONOCYTE # 0.7 10^3/ul (0.3-0.9); NEUTROPHIL # 5.4 10^3/ul (1.6-7.5); NEUTROPHILS % 61.9 % (39.0-77.0); PLATELET COUNT 229 10^3/UL (140-415); RED BLOOD COUNT 5.63 10^6/ul (4.20-5.40); RED CELL DISTRIBUTION WIDTH 16.3 % (11.5-14.5); WHITE BLOOD COUNT 8.8 10^3/ul (4.8-10.8)
[2016-04-26] MEDS: LACTATED RINGER'S 1,000 ML IV SCH ×3 (07:33→23:44)
[2016-04-26] MEDS: ACCU-CHEK XX SCH ×4 (09:30→20:28)
[2016-04-26] MEDS: INSULIN ASPART [NOVOLOG] 3 ML PEN SC SCH ×6 (09:30→18:09)
[2016-04-26] MEDS: AZITHROMYCIN 250 MG TAB PO SCH (10:10)
--- NOTE | 2016-04-26 10:29 | PN ---
Date/Time of Note Date/Time of Note DATE: 04/26/16 TIME: 10:26 OB Subjective Subjective Subjective VSs stable, today she is 33 weeks and 5 days, condition no change few occasional contractions per hour per perinatologist recommendation would discontinue antibiotics as of today, with continue expecting management MICKIE KILPATRICK MD Apr 26, 2016 10:28
[2016-04-26] MEDS: INSULIN DETEMIR [LEVEMIR] 3ML CART SC SCH (21:15)
[2016-04-27] MEDS: NIFEdipine 10 MG CAP PO SCH ×4 (06:09→23:57)
[2016-04-27 07:23] LABS: ADD SCAN DIFF NO
[2016-04-27 07:25] LABS: ABNORMAL IP MESSAGE 1; BASOPHILS % 0.2 % (0.0-2.0); EOSINOPHILS # 0.2 10^3/ul (0.0-0.5); EOSINOPHILS % 1.6 % (0.0-7.0); HEMATOCRIT 38.1 % (37.0-47.0); HEMOGLOBIN 11.5 g/dl (12.0-16.0); LYMPHOCYTES # 2.6 10^3/ul (0.8-2.9); LYMPHOCYTES % 25.1 % (15.0-51.0); MEAN CORPUSCULAR HEMOGLOBIN 20.6 pg (29.0-33.0); MEAN CORPUSCULAR HGB CONC 30.2 g/dl (32.0-37.0); MEAN CORPUSCULAR VOLUME 68.2 fl (82.0-101.0); MONOCYTE # 0.9 10^3/ul (0.3-0.9); MONOCYTES % 8.7 % (0.0-11.0); NEUTROPHIL # 6.5 10^3/ul (1.6-7.5); NEUTROPHILS % 63.7 % (39.0-77.0); PLATELET COUNT 204 10^3/UL (140-415); RED BLOOD COUNT 5.59 10^6/ul (4.20-5.40); RED CELL DISTRIBUTION WIDTH 16.2 % (11.5-14.5); WHITE BLOOD COUNT 10.3 10^3/ul (4.8-10.8)
[2016-04-27] MEDS: INSULIN ASPART [NOVOLOG] 3 ML PEN SC SCH ×6 (07:30→18:07)
[2016-04-27] MEDS: ACCU-CHEK XX SCH ×4 (07:36→20:34)
[2016-04-27] MEDS: LACTATED RINGER'S 1,000 ML IV SCH ×3 (07:36→22:14)
[2016-04-27] MEDS: INSULIN DETEMIR [LEVEMIR] 3ML CART SC SCH (20:58)
[2016-04-28] MEDS: LACTATED RINGER'S 1,000 ML IV SCH ×3 (05:55→22:33)
[2016-04-28] MEDS: NIFEdipine 10 MG CAP PO SCH ×4 (06:18→23:53)
[2016-04-28 06:43] LABS: ADD SCAN DIFF NO
[2016-04-28 06:48] LABS: ABNORMAL IP MESSAGE 1; BASOPHILS % 0.3 % (0.0-2.0); EOSINOPHILS # 0.2 10^3/ul (0.0-0.5); HEMATOCRIT 38.5 % (37.0-47.0); HEMOGLOBIN 11.5 g/dl (12.0-16.0); LYMPHOCYTES # 2.4 10^3/ul (0.8-2.9); LYMPHOCYTES % 24.7 % (15.0-51.0); MEAN CORPUSCULAR HEMOGLOBIN 20.5 pg (29.0-33.0); MEAN CORPUSCULAR HGB CONC 29.9 g/dl (32.0-37.0); MEAN CORPUSCULAR VOLUME 68.6 fl (82.0-101.0); MEAN PLATELET VOLUME 11.4 fl (7.4-10.4); MONOCYTE # 0.8 10^3/ul (0.3-0.9); MONOCYTES % 8.7 % (0.0-11.0); NEUTROPHIL # 6.2 10^3/ul (1.6-7.5); NEUTROPHILS % 63.7 % (39.0-77.0); PLATELET COUNT 224 10^3/UL (140-415); RED BLOOD COUNT 5.61 10^6/ul (4.20-5.40); WHITE BLOOD COUNT 9.7 10^3/ul (4.8-10.8)
[2016-04-28] MEDS: ACCU-CHEK XX SCH ×4 (08:43→20:30)
[2016-04-28] MEDS: INSULIN ASPART [NOVOLOG] 3 ML PEN SC SCH ×6 (08:55→18:06)
--- NOTE | 2016-04-28 18:18 | QN ---
Documentation Comment Today 33 week 6/ 7 days VSs stable afebrile denies any contractions that she can feel status no change as of yesterday last a year for 5.6 ordered repeat ultrasound MICKIE Morales MD Apr 28, 2016 18:18
[2016-04-28] MEDS: INSULIN DETEMIR [LEVEMIR] 3ML CART SC SCH (21:32)
[2016-04-29] MEDS: LACTATED RINGER'S 1,000 ML IV SCH ×3 (05:53→20:52)
[2016-04-29] MEDS: NIFEdipine 10 MG CAP PO SCH ×4 (05:59→23:27)
[2016-04-29] MEDS: INSULIN ASPART [NOVOLOG] 3 ML PEN SC SCH ×6 (07:30→19:00)
[2016-04-29] MEDS: ACCU-CHEK XX SCH ×4 (07:31→21:00)
--- NOTE | 2016-04-29 08:58 | RADRPT ---
PROCEDURE: US OB. CLINICAL INDICATION: Premature rupture of membranes , pain TECHNIQUE: Transabdominal views of the pelvis are available for review. COMPARISON: 04/25/2016 FINDINGS: There is a single intrauterine gestation in a breech position. The heart rate is present at 142 bpm. The placenta is anterior. The NATHALIA measures 5.0 cm. RPTAT: AA IMPRESSION: Oligohydramnios. .Parag Conde MD, MD Date Time Electronically viewed and signed by .Parag Conde MD, MD on 04/29/2016 08:57 .S/
[2016-04-29] MEDS ORDERED: CARBOPROST 250 MCG INJ IM PRN (13:30)
[2016-04-29] MEDS ORDERED: MISOPROSTOL 200 MCG TAB PR PRN (13:30)
[2016-04-29] MEDS ORDERED: OXYTOCIN 30 UNITS/LR 500 ML IV SCH (13:30)
[2016-04-29] MEDS ORDERED: METHYLERGONOVINE 0.2 MG INJ IM PRN (13:30)
[2016-04-29] MEDS ORDERED: OXYTOCIN 30 UNITS/LR 500 ML IV PRN (13:30)
[2016-04-29] MEDS ORDERED: CEFAZOLIN 2 GM/50 ML (PMX) 50 ML IVPB SCH (13:30)
[2016-04-29 14:10] LABS: ADD SCAN DIFF NO
[2016-04-29 14:12] LABS: ABNORMAL IP MESSAGE 1; BASOPHILS % 0.1 % (0.0-2.0); EOSINOPHILS # 0.2 10^3/ul (0.0-0.5); EOSINOPHILS % 1.8 % (0.0-7.0); HEMATOCRIT 37.6 % (37.0-47.0); HEMOGLOBIN 11.6 g/dl (12.0-16.0); LYMPHOCYTES # 1.8 10^3/ul (0.8-2.9); LYMPHOCYTES % 19.9 % (15.0-51.0); MEAN CORPUSCULAR HEMOGLOBIN 20.8 pg (29.0-33.0); MEAN CORPUSCULAR HGB CONC 30.9 g/dl (32.0-37.0); MEAN CORPUSCULAR VOLUME 67.4 fl (82.0-101.0); MONOCYTE # 0.6 10^3/ul (0.3-0.9); MONOCYTES % 6.7 % (0.0-11.0); NEUTROPHIL # 6.4 10^3/ul (1.6-7.5); NEUTROPHILS % 71.1 % (39.0-77.0); PLATELET COUNT 248 10^3/UL (140-415); RED BLOOD COUNT 5.58 10^6/ul (4.20-5.40); RED CELL DISTRIBUTION WIDTH 15.9 % (11.5-14.5)
[2016-04-29 14:23] LABS: INR 0.93; PROTIME 12.5 Sec (12.2-14.2)
[2016-04-29 14:24] LABS: PARTIAL THROMBOPLASTIN TIME 27.5 Sec (25.0-35.0)
[2016-04-29] MEDS: INSULIN DETEMIR [LEVEMIR] 3ML CART SC SCH (21:50)
[2016-04-30] MEDS: LACTATED RINGER'S 1,000 ML IV SCH ×3 (05:29→18:15)
[2016-04-30] MEDS ORDERED: EPHEDrine SULFATE 50 MG/5 ML SYG ONE (14:44)
[2016-04-30] MEDS ORDERED: OXYTOCIN 30 UNITS/LR 500 ML IV ONE (14:44)
[2016-04-30] MEDS ORDERED: ONDANSETRON 4 MG INJ ONE (14:45)
[2016-04-30] MEDS ORDERED: OXYTOCIN 10 UNIT INJ ONE (14:45)
[2016-04-30] MEDS ORDERED: METOCLOPRAMIDE 10 MG INJ ONE (14:45)
[2016-04-30] MEDS ORDERED: morphine SULFATE/PF (10 MG/10 ML) INJ ONE (14:45)
--- NOTE | 2016-04-30 15:38 | HP ---
DATE OF ADMISSION: 04/15/2016 HISTORY OF PRESENT ILLNESS: This is a 30-year-old female admitted to [facility] on 04/14/2016 for premature rupture of membranes, with a gestational age of appr oximately 32 weeks. She is 2, para 1, a history of normal vaginal delivery. Her is complicated with gestational diabetes, for which the patient is taking 2.5 mg of Glyburide twice daily. Her past medical, surgical, family and obstetrical histories were reviewed from the . Her b lood type is A positive, rubella immune, RPR negative, GBS is status unknown. The patient had recei asia betamethasone 2 doses and was covered with antibiotics, beginning were IV antibiotics and then s he was placed on oral antibiotics. She has been seen by the perinatologist today. The perinatologist recommended that since she is at 34 weeks to attempt for the delivery since she has had a previous . She is being prepared to undergo a repeat transverse low cervical section. ALLERGIES: SHE IS NOT ALLERGIC TO ANY KNOWN MEDICATIONS. SOCIAL HABITS: Denies smoking or drinking. FAMILY HISTORY: Positive for diabetes. REVIEW OF SYSTEMS: Within normal. PHYSICAL EXAMINATION: VITAL SIGNS: 5 feet 2 inches, 150 pounds, with temperature 98.2, pulse of 101, respirations 18, blo od pressure 136/73. HEAD, EARS, NOSE AND THROAT: Negative. NECK: Supple. No thyromegaly. LUNGS: Clear to P and A. HEART: Normal sinus rhythm. ABDOMEN: Fundal height 35 cm from the symphysis pubis, with a heart rate of category 1 most o f the time. PELVIC EXAMINATION: Deferred. EXTREMITIES: No edema, no varicosities. IMPRESSION: 1. Intrauterine at 34 weeks' gestation, premature rupture of membranes for approximately 2 weeks. 2. History of previous section, undergoing a repeat . The patient is aware of the complications of the surgery, including bowel or bladder injury, infecti on, hemorrhage and hematoma, and she is willing to go ahead with this procedure. Dictated By: MICKIE KILPATRICK MD HF/NTS Conf#: [id number] DID#: [id number]
[2016-04-30] MEDS: KETOROLAC 30 MG INJ IV PRN (16:21)
[2016-04-30] MEDS: ONDANSETRON 4 MG INJ IV PRN ×2 (16:21→22:08)
[2016-04-30] MEDS ORDERED: morphine SULFATE/PF (10 MG/10 ML) INJ SPINAL ONE (16:30)
[2016-04-30] MEDS ORDERED: HYDROmorphONE 1 MG/ML SYG IV PRN ×2 (16:30)
[2016-04-30] MEDS ORDERED: EPHEDrine SULFATE 50 MG/5 ML SYG IV PRN (16:30)
[2016-04-30] MEDS ORDERED: NALOXONE (0.4 MG/ML) INJ IV PRN (16:30)
[2016-04-30] MEDS ORDERED: DIPHENHYDRAMINE 50 MG INJ IV PRN (16:30)
[2016-04-30] MEDS ORDERED: morphine 2 MG INJ IV PRN ×2 (16:30)
--- NOTE | 2016-04-30 17:54 | OPR ---
DATE OF OPERATION: 04/30/2016 PREOPERATIVE DIAGNOSES: 1. Intrauterine at 34 weeks' gestation. 2. Previous rupture of membranes as of 04/14/2016. 3. History of previous section. Recommended by perinatology delivery at 34 weeks. POSTOPERATIVE DIAGNOSES: 1. Intrauterine at 34 weeks' gestation. 2. Previous rupture of membranes as of 04/14/2016. 3. History of previous section. Recommended by perinatology delivery at 34 weeks. OPERATION PERFORMED: Repeat transverse low cervical section. SURGEON: Mickie Marcial MD NUCLEAR TECHNICIAN: Luigi Pinto MD ANESTHESIA: Spinal. ANESTHESIOLOGIST: Dr. Lopez. FINDINGS: Live baby girl with the 9 and 9. DETAILS OF THE PROCEDURE: Under satisfactory spinal anesthesia, the patient was prepped and draped and placed in supine position, tilted to the left. Pfannenstiel incision was made. Old scar was re moved. Incision carried through to the subcutaneous tissue. Bleeders brought under control with el ectrocautery. Fascia incised to the length of incision. Rectus muscle divided in midline. Perito neum exposed, entered through a transverse incision. Upon entry into the abdomen, it was noted the anterior uterine wall and the round ligament is densely attached to the anterior abdominal wall, whi ch needed dissection and releasing the attachment to the anterior abdominal wall and filling the low er segment of the uterus. Bladder flap was developed. Transverse incision was made in the lower se gment of the uterus. Amniotic sac ruptured, scant amount of amniotic fluid noted. Live baby girl w as delivered from unengaged vertex. Nasal oropharyngeal suction was performed. Baby handed to the team for immediate attention. The patient received 20 units of Pitocin. Placenta delivere d manually intact. Uterine cavity cleaned with wet sponge and drainage established. Uterus closed in 2 layers using Monocryl #1 in continuous fashion. Peritoneal cavity irrigated with warm saline. Sponge, needle and instrument reported to be correct. Abdominal peritoneum closed with 2-0 chromic catgut continuously. Rectus muscle approximated with several interrupted 2-0 chromic catgut. Fasc ia closed with #1 PDS in a continuous fashion. Subcutaneous bleeders brought under control with rick ctrocautery and subcutaneous tissue approximated with 2-0 chromic catgut. Skin closed with bebe . Estimated blood loss 600 mL. Urine bag contained 200 mL of clear urine. Patient tolerated proce dure well, transferred to recovery room in a good condition. Dictated By: MICKIE MARCIAL MD HF/NTS Conf#: [id number] DID#: [id number] CC: LUIGI PINTO MD;*EndCC*
[2016-04-30] MEDS ORDERED: DEXTROSE 5%-LR 1,000 ML IV SCH ×2 (18:15)
[2016-04-30] MEDS ORDERED: OXYTOCIN 30 UNITS/LR 500 ML IV PRN (18:30)
[2016-04-30] MEDS ORDERED: ACETAMINOPHEN/CODEINE #3 TAB PO PRN (18:30)
[2016-04-30] MEDS ORDERED: METHYLERGONOVINE 0.2 MG TAB PO PRN (18:30)
[2016-04-30] MEDS ORDERED: METHYLERGONOVINE 0.2 MG INJ IM PRN (18:30)
[2016-04-30] MEDS ORDERED: LANOLIN 7 GM TUBE TOP PRN (18:30)
[2016-04-30] MEDS ORDERED: CARBOPROST 250 MCG INJ IM PRN (18:30)
[2016-04-30] MEDS ORDERED: MISOPROSTOL 200 MCG TAB PR PRN (18:30)
[2016-04-30 19:30] VITALS: BP 116/62; PULSE 76; RESP 18
[2016-04-30 19:48] LABS: ADD SCAN DIFF NO
[2016-04-30 19:50] LABS: ABNORMAL IP MESSAGE 1; HEMATOCRIT 37.7 % (37.0-47.0); HEMOGLOBIN 11.3 g/dl (12.0-16.0); MEAN CORPUSCULAR HEMOGLOBIN 20.4 pg (29.0-33.0); MEAN CORPUSCULAR VOLUME 68.2 fl (82.0-101.0); PLATELET COUNT 218 10^3/UL (140-415); RED BLOOD COUNT 5.53 10^6/ul (4.20-5.40); RED CELL DISTRIBUTION WIDTH 15.7 % (11.5-14.5); WHITE BLOOD COUNT 17.9 10^3/ul (4.8-10.8)
[2016-04-30] MEDS: ACCU-CHEK XX SCH (20:05)
[2016-04-30 20:30] VITALS: BP 123/67; PULSE 80; RESP 19
[2016-04-30] MEDS: SENNA/DOCUSATE NA (8.6MG/50MG) TAB PO SCH (21:26)
[2016-04-30] MEDS: OXYTOCIN 30 UNITS/LR 500 ML IV SCH ×2 (21:27→22:15)
[2016-04-30 22:01] LABS: LYMPHOCYTES # 0.7 10^3/ul (0.8-2.9); MONOCYTE # 0.7 10^3/ul (0.3-0.9); NEUTROPHIL # 14.7 10^3/ul (1.6-7.5)
[2016-04-30 22:02] LABS: MICROCYTOSIS 1+
[2016-05-01] VITALS: BP 115/69; PULSE 99; RESP 18
[2016-05-01] MEDS: LACTATED RINGER'S 1,000 ML IV SCH ×3 (01:22→19:30)
[2016-05-01 04:00] VITALS: BP 125/77; PULSE 98; RESP 19
[2016-05-01] MEDS: KETOROLAC 30 MG INJ IV PRN ×2 (04:52→13:01)
[2016-05-01 06:44] LABS: ADD SCAN DIFF NO
[2016-05-01 06:50] LABS: ABNORMAL IP MESSAGE 1; BASOPHILS % 0.2 % (0.0-2.0); HEMATOCRIT 31.9 % (37.0-47.0); HEMOGLOBIN 9.6 g/dl (12.0-16.0); LYMPHOCYTES # 1.4 10^3/ul (0.8-2.9); LYMPHOCYTES % 10.2 % (15.0-51.0); MEAN CORPUSCULAR HEMOGLOBIN 20.5 pg (29.0-33.0); MEAN CORPUSCULAR HGB CONC 30.1 g/dl (32.0-37.0); MONOCYTE # 0.8 10^3/ul (0.3-0.9); MONOCYTES % 6.1 % (0.0-11.0); NEUTROPHILS % 83.2 % (39.0-77.0); PLATELET COUNT 208 10^3/UL (140-415); RED BLOOD COUNT 4.69 10^6/ul (4.20-5.40); RED CELL DISTRIBUTION WIDTH 15.7 % (11.5-14.5); WHITE BLOOD COUNT 13.2 10^3/ul (4.8-10.8)
[2016-05-01 07:45] VITALS: BP 117/66; PULSE 93; RESP 18
[2016-05-01] MEDS: SENNA/DOCUSATE NA (8.6MG/50MG) TAB PO SCH ×2 (10:12→22:35)
--- NOTE | 2016-05-01 10:16 | QN ---
Documentation Comment POD #1 s/p repeat c/s at 34 weeks. Doing well except feels a litle dizzy but not due to have woods and IV out yet til later today. T= 98.2 BP 117/65 Dressing clean, dry, intact. Lochia minimal. Ext 1+ edema. WBC 13.2 Hgb 9.6 Plts 208K P: continue care as orders written. RYAN PINTO MD May 01, 2016 10:16
[2016-05-01 12:00] VITALS: BP 108/57; PULSE 92
[2016-05-01 16:00] VITALS: BP 118/70; RESP 20
[2016-05-01] MEDS: ACCU-CHEK XX SCH ×2 (19:30→20:18)
[2016-05-01 19:55] VITALS: BP 111/56; PULSE 102; RESP 18
[2016-05-01] MEDS: ACETAMINOPHEN/CODEINE #3 TAB PO PRN (19:55)
[2016-05-01] MEDS: IBUPROFEN 800 MG TAB PO SCH (22:35)
[2016-05-02 04:00] VITALS: BP 126/72; PULSE 98; RESP 18
[2016-05-02] MEDS: IBUPROFEN 800 MG TAB PO SCH ×3 (05:50→21:17)
[2016-05-02 08:00] VITALS: BP 117/66; PULSE 93; RESP 18
[2016-05-02] MEDS: SENNA/DOCUSATE NA (8.6MG/50MG) TAB PO SCH ×2 (08:43→20:49)
[2016-05-02] MEDS: ACETAMINOPHEN/CODEINE #3 TAB PO PRN ×2 (08:43→22:18)
[2016-05-02] MEDS ORDERED: NA PHOSPHATE/BIPHOS 133 ML ENEMA PR ONE (10:30)
--- NOTE | 2016-05-02 12:43 | PN ---
Date/Time of Note Date/Time of Note DATE: 05/02/16 TIME: 12:42 OB Subjective Subjective Subjective Post day2 Afebrile VSs, abdomen soft incision dry bowel sounds present uterus firm extremity normal MICKIE KILPATRICK MD May 02, 2016 12:43
[2016-05-02 16:00] VITALS: BP 107/58; PULSE 88; RESP 20
[2016-05-02 20:00] VITALS: BP 117/73; PULSE 110; RESP 18
[2016-05-03 04:00] VITALS: BP 105/52; PULSE 85; RESP 18
[2016-05-03] MEDS: IBUPROFEN 800 MG TAB PO SCH (05:36)
[2016-05-03 07:40] VITALS: BP 109/63; PULSE 78; RESP 18
[2016-05-03] MEDS ORDERED: MEASLES,MUMPS,RUBELLA VACCINE INJ SC* ONE (09:00)
[2016-05-03] MEDS ORDERED: DIPHTH/TET/ACEL PERTUSS (ADULT) 0.5 ML VIAL IM* ONE (09:00)
[2016-05-03] MEDS: SENNA/DOCUSATE NA (8.6MG/50MG) TAB PO SCH (09:12)
--- NOTE | 2016-05-03 10:07 | PD.PPDC ---
DRIVER MESSENGER Discharge Instruction Condition Patient Condition: Good Diet Diet: Resume Regular Diet Wound/Drain Care Instructions Wound/Drain Care Instructions: Remove Steri Strips in 1 week Wash with soap and water Keep clean and dry Follow-up Follow-up with Physician: 4, Day/Days Provider Information: Appointment clinic in 4 days to SAMIR spence Return to clinic for SOILS ANALYST Instructions: Fever greater than 101 Worsening abdominal pain More than 2 pads per hour Unable to tolerate diet OB Instructions: Breast Tenderness Blurried Vision Headache Surgical Instructions: Incisional Drainage Incisional Redness MICKIE KILPATRICK MD May 03, 2016 10:07
--- NOTE | 2016-05-03 10:11 | DS ---
Date/Time of Note Date/Time of Note DATE: 05/03/16 TIME: 10:09 Obstetrical Discharge Record Final Diagnosis Final Diagnosis: delivered Section Section: Repeat Complications Other (Premature rupture of membranes) Condition on Discharge Physical Assessment Last Vitals: Vital signs stable abdomen soft incision dry bowel sounds present had normal bowel discharge with follow-up of instruction to be seen at the clinic in 4 days Voiding: Yes Breast: Filling Fundus: Firm Abdomen and Incision: Dry healing with Calf Tenderness: No Patient Condition: Good MICKIE KILPATRICK MD May 03, 2016 10:11
[2016-05-03] MEDS: ACETAMINOPHEN/CODEINE #3 TAB PO PRN (10:23)
== END 2016-05-03 12:35 | disposition home or self-care (01) | DRG 766 ==
LOC: OBT 22:43 → L-D 22:44 → OBT 04-15 00:31 → L-D 04-15 00:33 → OBG 04-16 09:52 → L-D 04-30 05:34 → PP1 04-30 18:49
PROVIDERS: ADMIT Obstetrics & Gynecology; ATTEND Obstetrics & Gynecology
PROC: 10D00Z1 Extraction of Products of Conception, Low, Open Approach (ICD-10-PCS; principal; 2016-04-30 15:15)
DX: O42.913 Preterm premature rupture of membranes, unspecified as to length of time between rupture and onset of labor, third trimester (principal); O24.425 Gestational diabetes mellitus in childbirth, controlled by oral hypoglycemic drugs; O34.219 Maternal care for unspecified type scar from previous cesarean delivery; Z3A.32 32 weeks gestation of pregnancy; Z37.0 Single live birth
CPT/HCPCS: 76815; 76818; 82947; 82962; 83735; 84112; 85025; 85610; 85730; 86592; 86850; 86900; 86901; 87340; 88307; 90715; 94760; 99464; G0463; J0290; J0456; J0690; J0702; J1815; J1885; J2274; J2405; J2590; J2765; J3475; J7120; J7121